=== PATIENT | female | born 1995 | race Caucasian/White ===

== ENCOUNTER 2017-01-12 22:28 | Emergency (ER) | payer OTHER ==
[~2017-01-12] VITALS: Ht 160 cm; Wt 55.0 kg
[~2017-01-12 22:28] MED LIST: DICL75 PO; LIDO5DIS35 TD
[2017-01-12 22:37] VITALS: BP 102/68; PULSE 66; RESP 18; TEMP 98.2; O2SAT 100
[2017-01-12] MEDS ORDERED: KETOROLAC TROMETHAMINE 60 MG/2 ML (IM) VIAL IM ONE (23:15)
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
[2017-01-12] MEDS ORDERED: ONDANSETRON HCL 4 MG/2 ML VIAL ONE (23:58)
[2017-01-13] MEDS ORDERED: ONDANSETRON HCL 4 MG/2 ML VIAL IV PUSH ONE
[2017-01-13] MEDS ORDERED: IBUP-232 PO (01:26)
== END 2017-01-13 01:39 | disposition home or self-care (01) ==
LOC: NEPE 22:28
DX: S60.211A Contusion of right wrist, initial encounter (principal); M25.512 Pain in left shoulder; M25.511 Pain in right shoulder; V43.53XA Car driver injured in collision with pick-up truck in traffic accident, initial encounter
CPT/HCPCS: 73030; 73100; 96372; 96374; 99284; J1885; J2405